=== PATIENT | male | born 1985 | race Hispanic/Latino ===

== ENCOUNTER 2017-08-21 08:30 | Emergency (ER) | payer BC ==
--- NOTE | 2017-08-21 09:51 | XRay Report ---
Left ankle 3 views: Findings: No bony or articular abnormality. No fracture or dislocation. Tiny spur posterior superior and posterior inferior calcaneum. Impression: No evidence of acute fracture.
[2017-08-21] MEDS ORDERED: TORADOL IM ONE (11:09)
--- NOTE | 2017-08-21 12:30 | Emergency Department Report ---
ED Lower Extremity HPI - General Chief Complaint: Extremity Injury, Lower Stated Complaint: LEFT FOOT INJURY Source: patient Mode of arrival: Ambulatory Limitations: Physical Limitation - History of Present Illness Initial Comments: 32 y/o M presents to the ER complaining of left ankle pain. Pt states that he sprained his ankle about 1.5 months ago and was seen at [facility] and was told that it was a sprain to the left ankle. 5/10 in severity with no movement and increases to 10/10 in severity with movement and pressure. Pt has not tried icing and resting the area. He states that he took ibuprofen 800 mg this morning with no relief of the pain. Pt denies any numbness or tingling. He reports to pain at the lateral aspect of the left foot at the lateral malleolus and posterior to this area. Drug allergy to PCN. NORRIS Complaint: ankle injury -: month(s) (first occured 1.5 months ago and then reaggrevated the site last night per patient) Injury: Ankle: Left Type of Injury: inversion Place: street/outdoors Severity: moderate Severity scale (0 -10): 5 Improves With: nothing Worsens With: weight bearing, movement Associated Symptoms: swelling, ambulatory. denies: numbness, tingling Treatments Prior to Arrival: NSAIDS - Related Data Previous Rx's Medication Instructions Recorded Last Taken Type Diclofenac EC [Voltaren] 50 mg PO BID PRN #20 tablet 08/21/17 Unknown Rx Allergies Allergy/AdvReac Type Severity Reaction Status Date / Time Penicillins Allergy Shortness Verified 08/21/17 08:55 of Breath ED Review of Systems ROS: Stated complaint: LEFT FOOT INJURY Other details as noted in HPI Constitutional: denies: chills, fever Eyes: denies: eye pain, eye discharge, vision change ENT: denies: ear pain, throat pain Respiratory: denies: cough, shortness of breath, wheezing Cardiovascular: denies: chest pain, palpitations Gastrointestinal: denies: abdominal pain, nausea, diarrhea Genitourinary: denies: urgency, dysuria Musculoskeletal: joint swelling, myalgia Skin: denies: rash, lesions Neurological: denies: headache, weakness, paresthesias Psychiatric: denies: anxiety, depression ED Past Medical Hx - Past Medical History Previous Medical History?: Yes Additional medical history: kidney stones - Surgical History Past Surgical History?: No - Social History Smoking Status: Former Smoker Substance Use Type: Alcohol - Medications Home Medications: Home Medications Medication Instructions Recorded Confirmed Last Taken Type Diclofenac EC [Voltaren] 50 mg PO BID PRN #20 tablet 08/21/17 Unknown Rx ED Physical Exam - General Limitations: Physical Limitation General appearance: alert, in no apparent distress - Head Head exam: Present: atraumatic, normocephalic - Eye Eye exam: Present: normal appearance - ENT ENT exam: Present: mucous membranes moist - Neck Neck exam: Present: normal inspection - Respiratory Respiratory exam: Present: normal lung sounds bilaterally. Absent: respiratory distress - Cardiovascular Cardiovascular Exam: Present: regular rate, normal rhythm. Absent: systolic murmur, diastolic murmur, rubs, gallop - Extremities Exam Extremities exam: Present: tenderness, joint swelling (slightly decreased active ROM with flexion and inversion of the left ankle), other (there was swelling and ttp noted at the L- lateral malleolus and at the tendon peroneus longus) - Expanded Lower Extremity Exam Left Lower Leg exam: Present: normal inspection, full ROM Ankle exam: Present: tenderness, swelling, erythema (sensation was intact, pulses were WNL) Foot/Toe exam: Present: normal inspection, full ROM Neuro vascular tendon exam: Present: no vascular compromise Gait: Positive: observed and normal - Neurological Exam Neurological exam: Present: alert, oriented X3 - Psychiatric Psychiatric exam: Present: normal affect, normal mood - Skin Skin exam: Present: warm, dry, intact, normal color, other (mild swelling noted at the lateral aspest of the left malleolus ). Absent: rash ED Course Vital Signs 08/21/17 08/21/17 08:56 16:59 Temperature 98.9 F 98.7 F Pulse Rate 80 76 Respiratory 20 18 Rate Blood Pressure 136/86 Blood Pressure 139/91 [Right] O2 Sat by Pulse 95 98 Oximetry - Reevaluation(s) Reevaluation #1: 08/21/17 12:33 Pt was examined by Dr. Hart about 30 min ago. Recommendation for anti- inflammatory and larson per orthopedist. 08/21/17 12:38 ED Lower Extremity MDM - Radiology Data Radiology results: report reviewed, image reviewed Left ankle xray: No bony or articular abnormality. No fracture or dislocation. Tiny Spur noted at the posterior superior and posterior inferior calcneum. *this imaging was also review by Dr. Hart. - Medical Decision Making pt was given toradol 30 mg injection here in the ED. Pt denied crutches and walker at this time. Pt states that he will obtain a larson from an outside pharmacy as suggested per Dr. Hart. Xray of the left ankle was essentially unremarkable with the exception of a tiny spur, however, the imaging was then viewed by Dr. Hart and the patient was examined by him and he advised that it is likely tendonitis and to treat with NSAIDS, arthritis cream, and a larson. Pt was discharged here in stable condition, alert and oriented,speaking in full sentences, and in no resp distress. Critical care attestation.: If time is entered above; I have spent that time in minutes in the direct care of this critically ill patient, excluding procedure time. ED Disposition Clinical Impression: Tendonitis Left ankle pain Qualifiers: Chronicity: acute Qualified Code(s): M25.572 - Pain in left ankle and joints of left foot Disposition: DC-01 TO HOME OR SELFCARE Is pt being admited?: No Does the pt Need Aspirin: No Condition: Stable Instructions: Diclofenac (By mouth), Tendinitis (ED) Additional Instructions: Please take the pain medication as needed for the pain. Rest, ice, compress, and elevate the joint. Please continue to use the area of pain and do not immobilize it completely. Please buy the larson from outside pharmacy as discussed today. You may also buy OTC arthritis ointment to help alleviate the pain. Please follow-up with Dr. Hart next week. PCP follow-up within 3-5 days. Prescriptions: Diclofenac EC [Voltaren] 50 mg PO BID PRN #20 tablet PRN Reason: Pain Referrals: [facility] [Outside] - 3-5 Days [facility] [Outside] - 3-5 Days PRIMARY CARE, [Primary Care Provider] - 3-5 Days POLO HART MD [Staff Physician] - 3-5 Days Forms: Work/School Release Form(ED)
[2017-08-21 18:43] VITALS: BP 139/91
== END 2017-08-21 12:45 | disposition home or self-care (01) ==
LOC: ED 08:30
DX: M77.9 Enthesopathy, unspecified (principal); M25.572 Pain in left ankle and joints of left foot
CPT/HCPCS: 73610; 96372; 99283; J1885